=== PATIENT | male | born 1985 | race Caucasian/White ===

== ENCOUNTER → 2021-07-24 09:22 | Outpatient (CLI) | payer OTHER, SELFPAY ==
--- NOTE | 2021-07-24 09:26 | DI.RAD.S_ITS ---
PROCEDURE: XR TOE RT MIN 2V INDICATIONS: great toe contusion TECHNIQUE: 3 views of the 1st toe(s) acquired. COMPARISON: None. FINDINGS: Bones: Comminuted nondisplaced fracture involving mid to distal portion of 1st proximal phalanx is seen with fracture line extending to 1st interphalangeal joint space. No other fracture or dislocation is seen. No suspicious bony lesions. Soft tissues: No suspicious soft tissue densities. IMPRESSION: Acute comminuted, nondisplaced and intra-articular fracture of 1st proximal phalanx as above. Dictated by: Son Trivedi M.D. on 07/24/2021 at 9:54 Approved by: Son Trivedi M.D. on 07/24/2021 at 9:55
== END ==
PROVIDERS: Referring Provider Nurse Practitioner Family; Visit Provider Nurse Practitioner Family
DX: S92.414A Nondisplaced fracture of proximal phalanx of right great toe, initial encounter for closed fracture (principal); X58.XXXA Exposure to other specified factors, initial encounter
CPT/HCPCS: 73660